=== PATIENT | male | born 1955 | race Caucasian/White ===

== ENCOUNTER 2022-03-13 12:12 | Inpatient (IN) | payer MEDICARE, MEDICAID ==
[2022-03-13 14:12] LABS: Mean Corpuscular HGB Conc 33 % (32-34); Mean Corpuscular Volume 103 fl (84-94); Red Blood Count 1.38 M/mm3 (3.65-5.03); Red Cell Distribution Width 19.4 % (13.2-15.2)
[2022-03-13 14:17] LABS: Hematocrit 14.2 % (35.5-45.6); Hemoglobin 4.6 gm/dl (11.8-15.2); Platelet Count 91 K/mm3 (140-440)
[2022-03-13 14:39] LABS: Albumin 1.8 g/dL (3.9-5); Calcium 7.6 mg/dL (8.4-10.2)
[2022-03-13] MEDS ORDERED: SODIUM CHLORIDE 0.9% 500 ML 500 ML IV ONE ×2 (14:43→22:30)
[2022-03-13 14:47] LABS: Eosinophils % (Manual) 0 % (0.0-4.3); Total Cells Counted 100
[2022-03-13 14:48] LABS: Anisocytosis 1+; Stomatocytes 1+
[2022-03-13 14:49] LABS: Hypochromasia 1+; Platelet Estimate Consistent w Auto
--- NOTE | 2022-03-13 17:18 | History and Physical Report ---
History of Present Illness Chief complaint: He got confused after dialysis History of present illness: 66 YO Male with HTN, DM, HCV, ESRD on HD(M,W,F) Presents to ED for evaluation. Patient is confused and lethargic at the time my evaluation and is unable to provide history. Patient history taken by EMS staff, ED staff, as well as dialysis center staff. Patient was in his routine state of health today and underwent his routine scheduled dialysis. Patient became confused during dialysis. Patient was able to complete dialysis remained confused. EMS was notified and upon arrival the patient was found to be in distress and subsequent transported to [facility] for further care and evaluation of the aforementioned sy mptoms. The patient was seen and evaluated in the emergency department. All lab and imaging studies reviewed. Patient found to have dialysis disequilibrium syndrome, symptomatic anemia, as well as end-stage renal disease. Patient admitted to medical floor due to increased risk of worsening symptoms and for medical stabilization. No further history is obtainable. No prior admission for review. No medication listed at time of admission for reconciliation. Advanced care planning conducted in ED. Patient is confused with diminished cognition at time of evaluation but has a positive gag reflex and is able to protect his airway without difficulty. Past History Past Medical History: diabetes, ESRD, hypertension Past Surgical History: Other (Dialysis access) Social history: single. denies: smoking, alcohol abuse, prescription drug abuse Family history: diabetes, hypertension Medications and Allergies Active Meds: Active Medications Sodium Chloride (Nacl 0.9% 1000 Ml) 1,000 mls @ 999 mls/hr IV BOLUS ONE Stop: 03/13/22 14:20 Sodium Chloride (Nacl 0.9% 500 Ml) 500 mls @ 0 mls/hr IV ONCE ONE Stop: 03/13/22 14:41 Sodium Chloride (Nacl 0.9% 500 Ml) 500 mls @ 0 mls/hr IV ONCE ONE Stop: 03/13/22 14:44 Review of Systems ROS unobtainable: due to mental status Exam - Constitutional Vitals: Temp Pulse Resp BP Pulse Ox 88 18 118/66 97 03/13/22 12:20 03/13/22 12:20 03/13/22 12:20 03/13/22 13:21 General appearance: Present: mild distress - EENT Eyes: Present: PERRL ENT: hearing intact, clear oral mucosa - Neck Neck: Present: supple, normal ROM - Respiratory Respiratory effort: normal Respiratory: bilateral: diminished - Cardiovascular Heart Sounds: Present: S1 & S2. Absent: rub, click - Extremities Extremities: pulses symmetrical, No edema Peripheral Pulses: within normal limits - Abdominal General gastrointestinal: Present: soft, non-tender, non-distended, normal bowel sounds Male genitourinary: Present: normal - Integumentary Integumentary: Present: clear, dry - Musculoskeletal Musculoskeletal: generalized weakness - Psychiatric Psychiatric: no appropriate mood/affect, no intact judgment & insight, no memory intact - Neurologic Neurologic: CNII-XII intact, no focal deficits, moves all extremities, no gait normal HEART Score - HEART Score Troponin: Troponin T 0.414 ng/mL (0.00-0.029) H* 03/13/22 13:50 Results - Labs CBC & Chem 7: 03/13/22 13:50 03/13/22 13:50 Labs: Abnormal lab results 03/13/22 03/13/22 03/13/22 Range/Units 13:50 13:50 16:22 RBC 1.38 L (3.65-5.03) M/mm3 Hgb 4.6 L* (11.8-15.2) gm/dl Hct 14.2 L* (35.5-45.6) % MCV 103 H (84-94) fl MCH 34 H (28-32) pg RDW 19.4 H (13.2-15.2) % Plt Count 91 L (140-440) K/mm3 Seg Neuts % (Manual) 90.0 H (40.0-70.0) % Lymphocytes % (Manual) 5.0 L (13.4-35.0) % Nucleated RBC % 4.0 H (0.0-0.9) % Lymphocytes # (Manual) 0.3 L (1.2-5.4) K/mm3 Potassium 3.3 L (3.6-5.0) mmol/L BUN 24 H (9-20) mg/dL Creatinine 2.0 H (0.8-1.3) mg/dL Calcium 7.6 L (8.4-10.2) mg/dL Total Bilirubin 1.40 H (0.1-1.2) mg/dL AST 200 H (5-40) units/L ALT 71 H (7-56) units/L Troponin T 0.414 H* (0.00-0.029) ng/mL Total Protein 5.4 L (6.3-8.2) g/dL Albumin 1.8 L (3.9-5) g/dL Crossmatch See Detail Assessment and Plan - Patient Problems (1) Dialysis disequilibrium syndrome Current Visit: Yes Status: Acute Plan to address problem: CT scan head, neuro check, seizure precaution, aspiration caution, fall precautions, supportive care. (2) Symptomatic anemia Current Visit: Yes Status: Acute Plan to address problem: Blood cell transfusion, repeat CBC in AM. (3) End stage renal disease Current Visit: Yes Status: Acute Plan to address problem: Nephrology team consulted in ED, dialysis as per renal team. (4) DVT prophylaxis Current Visit: Yes Status: Acute Plan to address problem: SCD to bilateral lower extremities while in bed (5) Advance care planning Current Visit: Yes Status: Acute Plan to address problem: Disease education conducted, care plan discussed, diagnoses discussed, prognosis discussed, +30 minutes. (6) Preventative health care Current Visit: Yes Status: Acute Plan to address problem: Patient to follow-up with primary care physician for all age and risk factor appropriate screening test. +30 minutes.
[2022-03-13] MEDS ORDERED: CALCIUM GLUCONATE 2,000 MG in SODIUM CHLORIDE 0.9% 100 ML IV ONE (17:24)
--- NOTE | 2022-03-13 17:25 | Emergency Department Report ---
ED Altered Mental Status HPI - General Chief Complaint: Altered Mental Status Stated Complaint: ALTERED MENTAL STATUS Time Seen by Provider: 03/13/22 13:05 Source: EMS Mode of arrival: Stretcher Limitations: Altered Mental Status - History of Present Illness Initial Comments: Patient is a 66-year-old male sent from dialysis for decreased mental status o ccurring earlier today. ED Review of Systems ROS: Stated complaint: ALTERED MENTAL STATUS Other details as noted in HPI Constitutional: denies: chills, fever Respiratory: denies: cough, shortness of breath, wheezing Cardiovascular: denies: chest pain, palpitations Gastrointestinal: denies: abdominal pain, nausea, diarrhea Musculoskeletal: denies: back pain, joint swelling, arthralgia Skin: denies: rash, lesions Neurological: denies: headache, weakness, paresthesias ED Past Medical Hx - Past Medical History Hx Hypertension: Yes Hx Diabetes: Yes Hx Liver Disease: Yes (Hep C) Hx Renal Disease: Yes (HD) - Social History Smoking Status: Unknown if ever smoked ED Physical Exam - General Limitations: Altered Mental Status General appearance: in no apparent distress, lethargic (Appears confused) - Head Head exam: Present: atraumatic, normocephalic - Respiratory Respiratory exam: Present: normal lung sounds bilaterally. Absent: respiratory distress - Cardiovascular Cardiovascular Exam: Present: regular rate, normal rhythm, normal heart sounds - GI/Abdominal GI/Abdominal exam: Present: soft. Absent: distended, tenderness - Rectal Rectal exam: Present: deferred (Patient refuses rectal exam) - Neurological Exam Neurological exam: Present: CN II-XII intact, other (Oriented to person only) - Skin Skin exam: Present: warm, dry, intact, normal color ED Course Vital Signs 03/13/22 03/13/22 12:20 13:21 Pulse Rate 88 Respiratory 18 Rate Blood Pressure 118/66 [Left] O2 Sat by Pulse 98 97 Oximetry - Lab Data Result diagrams: 03/13/22 13:50 03/13/22 13:50 Lab Results 03/13/22 03/13/22 03/13/22 Range/Units 13:50 13:50 13:50 WBC 5.4 (4.5-11.0) K/mm3 RBC 1.38 L (3.65-5.03) M/mm3 Hgb 4.6 L* (11.8-15.2) gm/dl Hct 14.2 L* (35.5-45.6) % MCV 103 H (84-94) fl MCH 34 H (28-32) pg MCHC 33 (32-34) % RDW 19.4 H (13.2-15.2) % Plt Count 91 L (140-440) K/mm3 Add Manual Diff Complete Total Counted 100 Seg Neuts % (Manual) 90.0 H (40.0-70.0) % Band Neutrophils % 0 % Lymphocytes % (Manual) 5.0 L (13.4-35.0) % Reactive Lymphs % (Man) 0 % Monocytes % (Manual) 4.0 (0.0-7.3) % Eosinophils % (Manual) 0 (0.0-4.3) % Basophils % (Manual) 1.0 (0.0-1.8) % Metamyelocytes % 0 % Myelocytes % 0 % Promyelocytes % 0 % Blast Cells % 0 % Nucleated RBC % 4.0 H (0.0-0.9) % Seg Neutrophils # Man 4.9 (1.8-7.7) K/mm3 Band Neutrophils # 0.0 K/mm3 Lymphocytes # (Manual) 0.3 L (1.2-5.4) K/mm3 Abs React Lymphs (Man) 0.0 K/mm3 Monocytes # (Manual) 0.2 (0.0-0.8) K/mm3 Eosinophils # (Manual) 0.0 (0.0-0.4) K/mm3 Basophils # (Manual) 0.1 (0.0-0.1) K/mm3 Metamyelocytes # 0.0 K/mm3 Myelocytes # 0.0 K/mm3 Promyelocytes # 0.0 K/mm3 Blast Cells # 0.0 K/mm3 WBC Morphology Not Reportable Hypersegmented Neuts Not Reportable Hyposegmented Neuts Not Reportable Hypogranular Neuts Not Reportable Smudge Cells Not Reportable Toxic Granulation Not Reportable Toxic Vacuolation Not Reportable Dohle Bodies Not Reportable Pelger-Huet Anomaly Not Reportable Samir Rods Not Reportable Platelet Estimate Consistent w auto Clumped Platelets Not Reportable Plt Clumps, EDTA Not Reportable Large Platelets Not Reportable Giant Platelets Not Reportable Platelet Satelliting Not Reportable Plt Morphology Comment Not Reportable RBC Morphology Not Reportable Dimorphic RBCs Not Reportable Polychromasia Not Reportable Hypochromasia 1+ Poikilocytosis Not Reportable Anisocytosis 1+ Microcytosis Not Reportable Macrocytosis Not Reportable Spherocytes Not Reportable Pappenheimer Bodies Not Reportable Sickle Cells Not Reportable Target Cells Not Reportable Tear Drop Cells Not Reportable Ovalocytes Not Reportable Stomatocytes 1+ Helmet Cells Not Reportable Mckeon-[place] Bodies Not Reportable [place] Rings Not Reportable Wei Cells Not Reportable Bite Cells Not Reportable Crenated Cell Not Reportable Elliptocytes Not Reportable Acanthocytes (Spur) Not Reportable Rouleaux Not Reportable Hemoglobin C Crystals Not Reportable Schistocytes Not Reportable Malaria parasites Not Reportable Nav Bodies Not Reportable Hem Pathologist Commnt No Sodium 139 (137-145) mmol/L Potassium 3.3 L (3.6-5.0) mmol/L Chloride 100.8 (98-107) mmol/L Carbon Dioxide 25 (22-30) mmol/L Anion Gap 17 mmol/L BUN 24 H (9-20) mg/dL Creatinine 2.0 H (0.8-1.3) mg/dL Estimated GFR 33 ml/min BUN/Creatinine Ratio 12 % Glucose 93 (75-100) mg/dL Lactic Acid 1.70 (0.7-2.0) mmol/L Calcium 7.6 L (8.4-10.2) mg/dL Total Bilirubin 1.40 H (0.1-1.2) mg/dL AST 200 H (5-40) units/L ALT 71 H (7-56) units/L Alkaline Phosphatase 99 (35-129) units/L Total Creatine Kinase 63 (55-170) units/L Troponin T 0.414 H* (0.00-0.029) ng/mL Total Protein 5.4 L (6.3-8.2) g/dL Albumin 1.8 L (3.9-5) g/dL Albumin/Globulin Ratio 0.5 % Blood Type Crossmatch 03/13/22 Range/Units 16:22 WBC (4.5-11.0) K/mm3 RBC (3.65-5.03) M/mm3 Hgb (11.8-15.2) gm/dl Hct (35.5-45.6) % MCV (84-94) fl MCH (28-32) pg MCHC (32-34) % RDW (13.2-15.2) % Plt Count (140-440) K/mm3 Add Manual Diff Total Counted Seg Neuts % (Manual) (40.0-70.0) % Band Neutrophils % % Lymphocytes % (Manual) (13.4-35.0) % Reactive Lymphs % (Man) % Monocytes % (Manual) (0.0-7.3) % Eosinophils % (Manual) (0.0-4.3) % Basophils % (Manual) (0.0-1.8) % Metamyelocytes % % Myelocytes % % Promyelocytes % % Blast Cells % % Nucleated RBC % (0.0-0.9) % Seg Neutrophils # Man (1.8-7.7) K/mm3 Band Neutrophils # K/mm3 Lymphocytes # (Manual) (1.2-5.4) K/mm3 Abs React Lymphs (Man) K/mm3 Monocytes # (Manual) (0.0-0.8) K/mm3 Eosinophils # (Manual) (0.0-0.4) K/mm3 Basophils # (Manual) (0.0-0.1) K/mm3 Metamyelocytes # K/mm3 Myelocytes # K/mm3 Promyelocytes # K/mm3 Blast Cells # K/mm3 WBC Morphology Hypersegmented Neuts Hyposegmented Neuts Hypogranular Neuts Smudge Cells Toxic Granulation Toxic Vacuolation Dohle Bodies Pelger-Huet Anomaly Samir Rods Platelet Estimate Clumped Platelets Plt Clumps, EDTA Large Platelets Giant Platelets Platelet Satelliting Plt Morphology Comment RBC Morphology Dimorphic RBCs Polychromasia Hypochromasia Poikilocytosis Anisocytosis Microcytosis Macrocytosis Spherocytes Pappenheimer Bodies Sickle Cells Target Cells Tear Drop Cells Ovalocytes Stomatocytes Helmet Cells Mckeon-[place] Bodies [place] Rings Wei Cells Bite Cells Crenated Cell Elliptocytes Acanthocytes (Spur) Rouleaux Hemoglobin C Crystals Schistocytes Malaria parasites Nav Bodies Hem Pathologist Commnt Sodium (137-145) mmol/L Potassium (3.6-5.0) mmol/L Chloride (98-107) mmol/L Carbon Dioxide (22-30) mmol/L Anion Gap mmol/L BUN (9-20) mg/dL Creatinine (0.8-1.3) mg/dL Estimated GFR ml/min BUN/Creatinine Ratio % Glucose (75-100) mg/dL Lactic Acid (0.7-2.0) mmol/L Calcium (8.4-10.2) mg/dL Total Bilirubin (0.1-1.2) mg/dL AST (5-40) units/L ALT (7-56) units/L Alkaline Phosphatase (35-129) units/L Total Creatine Kinase (55-170) units/L Troponin T (0.00-0.029) ng/mL Total Protein (6.3-8.2) g/dL Albumin (3.9-5) g/dL Albumin/Globulin Ratio % Blood Type O POSITIVE Crossmatch See Detail - Medical Decision Making Laboratory evaluation reveals hemoglobin of 4.6. 3 units ordered. Platelet count 91. Troponin 0.414. Patient denies chest pain or shortness of breath. Likely related to chronic kidney disease. Serum calcium 7.6. IV calcium gluconate ordered. Will admit to hospitalist. Critical care attestation.: If time is entered above; I have spent that time in minutes in the direct care of this critically ill patient, excluding procedure time. ED Disposition Clinical Impression: Symptomatic anemia, Thrombocytopenia, Hypocalcemia Disposition: 09 ADMITTED INPATIENT Is pt being admited?: Yes Condition: Stable
--- NOTE | 2022-03-13 18:10 | Cat Scan Report ---
CT HEAD WITHOUT CONTRAST INDICATION / CLINICAL INFORMATION: ams. TECHNIQUE: All CT scans at this location are performed using CT dose reduction for ALARA by means of automated exposure control. COMPARISON: None available. FINDINGS: HEMORRHAGE: None. EXTRA-AXIAL SPACES: Moderately prominent likely related to cortical atrophy. VENTRICULAR SYSTEM: Moderately enlarged likely related to central atrophy. CEREBRAL PARENCHYMA: Moderate white matter hypodensities likely representing microangiopathy. Slightl y more focal low-attenuation change within the left frontoparietal region white matter tracts favors more focal chronic microangiopathy less likely prior infarct. MIDLINE SHIFT / HERNIATION: None. CEREBELLUM / BRAINSTEM: No significant abnormality. ORBITS: Normal as visualized. SOFT TISSUES: No significant abnormality. SKULL: No significant abnormality. PARANASAL SINUSES / MASTOID AIR CELLS: Normal as visualized. ADDITIONAL FINDINGS: None. IMPRESSION: 1. No acute intracranial pathology demonstrated by CT. 2. Extensive global atrophic/microangiopathic change most pronounced involving the left frontoparieta l periventricular white matter tracts versus a prior infarct in this region. Signer Name: Argentina Soares MD Signed: 03/13/2022 6:06 PM Workstation Name: [id number]
[2022-03-13] MEDS ORDERED: oxyCODONE /ACETAMINOPHEN 5-325MG TAB PO PRN (18:34)
[2022-03-13] MEDS ORDERED: ACETAMINOPHEN 325 MG TAB PO PRN (18:34)
[2022-03-13] MEDS ORDERED: MORPHINE 2 MG/1 ML INJ IV PRN (18:34)
[2022-03-13] MEDS ORDERED: ALBUTEROL 2.5 MG/3 ML NEBU IH PRN (18:34)
[2022-03-13] MEDS ORDERED: ONDANSETRON 4 MG/2 ML INJ IV PRN (18:34)
[2022-03-13] MEDS ORDERED: SODIUM CHLORIDE 0.9% 1000 ML 1,000 ML IV ONE (21:00)
--- NOTE | 2022-03-14 09:48 | Consultation ---
History of Present Illness - Reason for Consult Consult date: 03/14/22 end stage renal disease - History of Present Illness The patient is a 66 YO male with history notable for HTN, DM, HCV and ESRD on HD(MWF) who presented to [facility] ED 03/13/22 for evaluation of AMS. Patient is confused and lethargic at the time my evaluation and is unable to provide history. Per chart patient became confused during dialysis. Patient was able to complete dialysis but remained confused. In the ED labs notable for Hb 4.6, platelet 91. Patient was admitted with symptomatic anemia. CT head negative for acute process. Nephrology consulted for further evaluation and treatment of ESRD. Past History Past Medical History: diabetes, ESRD, hypertension Past Surgical History: Other (Dialysis access) Social history: single. denies: smoking, alcohol abuse, prescription drug abuse Family history: diabetes, hypertension Medications and Allergies Allergies Allergy/AdvReac Type Severity Reaction Status Date / Time No Known Allergies Allergy Unverified 03/14/22 08:19 Active Meds: Active Medications Acetaminophen (Acetaminophen 325 Mg Tab) 650 mg PO Q4H PRN PRN Reason: Pain MILD(1-3)/Fever >100.5/CASTILLO Albuterol (Albuterol 2.5 Mg/3 Ml Nebu) 2.5 mg IH Q4HRT PRN PRN Reason: Shortness Of Breath Morphine Sulfate (Morphine 2 Mg/1 Ml Inj) 2 mg IV Q14H PRN PRN Reason: Pain , Severe (7-10) Ondansetron HCl (Ondansetron 4 Mg/2 Ml Inj) 4 mg IV Q8H PRN PRN Reason: Nausea And Vomiting Oxycodone/Acetaminophen (Oxycodone /Acetaminophen 5-325mg Tab) 1 tab PO Q6H PRN PRN Reason: Pain, Moderate (4-6) Sodium Chloride (Sodium Chloride 0.9% 10 Ml Flush Syringe) 10 ml IV BID STACIE Last Admin: 03/13/22 22:03 Dose: 10 ml Sodium Chloride (Sodium Chloride 0.9% 10 Ml Flush Syringe) 10 ml IV PRN PRN PRN Reason: LINE FLUSH Review of Systems ROS unobtainable: due to mental status Exam - Vital Signs Vital signs: Vital Signs Pulse Resp BP Pulse Ox 88 18 118/66 98 03/13/22 12:20 03/13/22 12:20 03/13/22 12:20 03/13/22 12:20 Results - Lab Results 03/13/22 13:50 03/13/22 13:50 Most recent lab results Calcium 7.6 mg/dL (8.4-10.2) L 03/13/22 13:50 Magnesium 1.90 mg/dL (1.7-2.3) 03/13/22 18:10 Assessment and Plan 1. ESRD: Patient is on maintenance hemodialysis, MWF schedule. Hemodialysis: 2. FEN: Hypokalemia, replete K as needed. Monitor lytes and volume status. 3. Severe Anemia: PRBC. Epogen. Trend. Labs ordered for today, not done. 4. Acute metabolic encephalopathy: ?baseline MS. Monitor. 5. Elevated ALT & AST: Monitor. 6. Hypertension: Adjust meds as needed. Volume control. Monitor BP. 7. H/o DM. Subjective: Patient was seen and examined at the bedside. Examination: General appearance: well-developed, appears stated age, emaciated, not in distress HEENT: no icterus Neck: trachea midline Respiratory: ctab Heart: S1S2, regular, ESM+ Abdomen: soft, bowel sounds heard, NT, no palpable mass Integumentary: no obvious rash noted Neurologic: slowed mentation, oriented to self, not following any command Ext: no edema Hemodialysis access: R IJ tunnel catheter
--- NOTE | 2022-03-14 11:43 | Progress Note ---
Assessment and Plan The patient is a 66 YO male with history notable for HTN, DM, HCV and ESRD on HD(MWF) who presented to [facility] ED 03/13/22 for evaluation of AMS. In the ED labs notable for Hb 4.6, platelet 91. Patient was admitted with symptomatic anemia. CT head negative for acute process. Nephrology consulted for further evaluation and treatment of ESRD. Patient had hemodialysis and transfuse 2 unit of packed RBC 03/14: Status post hemodialysis and 2 units of packed RBC transfusion. GI to follow H&H, need GI evaluation to rule out GI bleeding. Follow BMP. Continue supportive care. Assessment and plan. --Acute metabolic encephalopathy CT scan head, neuro check, seizure precaution, aspiration caution, fall precauti ons, supportive care. -- Symptomatic anemia Likely due to chronic renal disease, need to rule out GI cause Status post blood cell transfusion, repeat CBC in AM. -- End stage renal disease Nephrology team consulted in ED, dialysis as per renal team. --Sinus tachycardia, continue to monitor -- Moderate protein calorie malnutrition, nutrition consult -- DVT prophylaxis: SCD to bilateral lower extremities while in bed Subjective Date of service: 03/14/22 Interval history: Patient seen and examined. Medical records and medication list reviewed. No acute event overnight noted by the RN. Patient denies any chest pain or difficulty breathing. Patient does not speak much, patient is tolerating diet per RN. Discussed plan of care at bedside with patient's RN. Objective - Exam Narrative Exam: GENERAL: Malnourished -[place] male lying on bed appeared to be in no discomfort. HEENT: Normocephalic. Atraumatic. No conjunctival congestion or icterus. Patient has moist mucous membranes. NECK: Supple. Trachea midline. CHEST/LUNGS: Clear to auscultated bilaterally, breathing nonlabored. No wheezes crackles or rhonchi. HEART/CARDIOVASCULAR: Regular in rate and rhythm. S1 and S2 positive. ABDOMEN: Abdomen is soft, nontender. Patient has normal bowel sounds. SKIN: There is no rash. Warm and dry. NEURO: No focal motor deficit. Follows command. MUSCULOSKELETAL: No joint effusion or tenderness. EXTRIMITY: No edema, no cyanosis or clubbing. PSYCH: Unable to assess, hardly speaking. - Constitutional Vitals: Vital Signs - 12hr 03/14/22 03/14/22 03/14/22 00:50 01:05 01:35 Temperature 97.4 F L 97.4 F L 97.2 F L Pulse Rate 90 90 89 Respiratory 17 16 17 Rate Blood Pressure 140/61 130/60 136/64 O2 Sat by Pulse 100 100 99 Oximetry 03/14/22 03/14/22 03/14/22 02:05 02:35 03:05 Temperature 97.3 F L 96.9 F L 96.8 F L Pulse Rate 90 90 90 Respiratory 16 17 18 Rate Blood Pressure 140/94 145/80 145/91 O2 Sat by Pulse 98 98 Oximetry 03/14/22 03/14/22 03:35 06:00 Temperature 96.5 F L 97.7 F Pulse Rate 90 97 H Respiratory 18 18 Rate Blood Pressure 148/69 109/51 O2 Sat by Pulse 94 Oximetry - Labs CBC & Chem 7: 03/14/22 21:13 03/14/22 21:13 Labs: Abnormal lab results 03/13/22 03/13/22 03/13/22 Range/Units 13:50 13:50 16:22 RBC 1.38 L (3.65-5.03) M/mm3 Hgb 4.6 L* (11.8-15.2) gm/dl Hct 14.2 L* (35.5-45.6) % MCV 103 H (84-94) fl MCH 34 H (28-32) pg RDW 19.4 H (13.2-15.2) % Plt Count 91 L (140-440) K/mm3 Seg Neuts % (Manual) 90.0 H (40.0-70.0) % Lymphocytes % (Manual) 5.0 L (13.4-35.0) % Nucleated RBC % 4.0 H (0.0-0.9) % Lymphocytes # (Manual) 0.3 L (1.2-5.4) K/mm3 Potassium 3.3 L (3.6-5.0) mmol/L BUN 24 H (9-20) mg/dL Creatinine 2.0 H (0.8-1.3) mg/dL Calcium 7.6 L (8.4-10.2) mg/dL Total Bilirubin 1.40 H (0.1-1.2) mg/dL AST 200 H (5-40) units/L ALT 71 H (7-56) units/L Troponin T 0.414 H* (0.00-0.029) ng/mL Total Protein 5.4 L (6.3-8.2) g/dL Albumin 1.8 L (3.9-5) g/dL Crossmatch See Detail HEART Score - HEART Score Troponin: Troponin T 0.414 ng/mL (0.00-0.029) H* 03/13/22 13:50
[2022-03-14] MEDS ORDERED: EPOETIN ALFA-EPBX 20,000 UNIT/1 ML VIAL SUB-Q ONE (12:00)
[2022-03-14 21:47] LABS: Basophils % (Auto) 0.9 % (0.0-1.8); Eosinophils # (Auto) 0.1 K/mm3 (0.0-0.4); Eosinophils % (Auto) 1.3 % (0.0-4.3); Hematocrit 24.1 % (35.5-45.6); Lymphocytes # (Auto) 1.1 K/mm3 (1.2-5.4); Lymphocytes % (Auto) 22.2 % (13.4-35.0); Mean Corpuscular HGB Conc 33 % (32-34); Mean Corpuscular Volume 94 fl (84-94); Monocytes # (Auto) 0.5 K/mm3 (0.0-0.8); Monocytes % (Auto) 9.9 % (0.0-7.3); Red Blood Count 2.55 M/mm3 (3.65-5.03)
[2022-03-14 21:51] LABS: Red Cell Distribution Width 21.9 % (13.2-15.2)
[2022-03-14 21:52] LABS: Platelet Count 72 K/mm3 (140-440)
[2022-03-14 21:53] LABS: Calcium 7.9 mg/dL (8.4-10.2)
[2022-03-15] MEDS: INSULIN LISPRO 100 UNIT/ML SUB-Q SCH ×4 (09:20→23:15)
[2022-03-15] MEDS ORDERED: FOLIC ACID PO SCH (10:00)
[2022-03-15] MEDS: TAMSULOSIN 0.4 MG CAP PO SCH (12:11)
[2022-03-15] MEDS: PANTOPRAZOLE 40 MG TAB PO SCH (12:11)
--- NOTE | 2022-03-15 12:29 | Progress Note ---
Assessment and Plan The patient is a 66 YO male with history notable for HTN, DM, HCV and ESRD on HD(MWF) who presented to [facility] ED 03/13/22 for evaluation of AMS. In the ED labs notable for Hb 4.6, platelet 91. Patient was admitted with symptomatic anemia. CT head negative for acute process. Nephrology consulted for further evaluation and treatment of ESRD. Patient had hemodialysis and transfuse 2 unit of packed RBC 03/14: Status post hemodialysis and 2 units of packed RBC transfusion. GI to follow H&H, need GI evaluation to rule out GI bleeding. Follow BMP. Continue supportive care. 03/15: Consulted GI, monitor H&H, placed on PPI Assessment and plan. --Acute metabolic encephalopathy CT scan head, neuro check, seizure precaution, aspiration caution, fall precautions, supportive care. -- Symptomatic anemia Likely due to chronic renal disease, need to rule out GI cause Status post blood cell transfusion, repeat CBC in AM. -- End stage renal disease Nephrology team consulted in ED, dialysis as per renal team. --Sinus tachycardia, continue to monitor -- Moderate protein calorie malnutrition, nutrition consult -- DVT prophylaxis: SCD to bilateral lower extremities while in bed Subjective Date of service: 03/15/22 Interval history: Patient seen and examined. Medical records and medication list reviewed. No acute event overnight noted by the RN. Patient denies any chest pain or difficulty breathing. Patient does not speak much, patient is tolerating diet per RN. Discussed plan of care at bedside with patient's RN. Objective - Exam Narrative Exam: GENERAL: Malnourished -Eritrean male lying on bed appeared to be in no discomfort. HEENT: Normocephalic. Atraumatic. No conjunctival congestion or icterus. Patient has moist mucous membranes. NECK: Supple. Trachea midline. CHEST/LUNGS: Clear to auscultated bilaterally, breathing nonlabored. No wheezes crackles or rhonchi. HEART/CARDIOVASCULAR: Regular in rate and rhythm. S1 and S2 positive. ABDOMEN: Abdomen is soft, nontender. Patient has normal bowel sounds. SKIN: There is no rash. Warm and dry. NEURO: No focal motor deficit. Follows command. MUSCULOSKELETAL: No joint effusion or tenderness. EXTRIMITY: No edema, no cyanosis or clubbing. PSYCH: Unable to assess, hardly speaking. - Constitutional Vitals: Vital Signs - 12hr 03/15/22 05:48 Temperature 97.6 F Pulse Rate 110 H Respiratory 20 Rate Blood Pressure 134/69 O2 Sat by Pulse 95 Oximetry - Labs CBC & Chem 7: 03/16/22 07:14 03/16/22 04:00 Labs: Abnormal lab results 03/14/22 03/14/22 03/14/22 Range/Units 12:08 16:46 21:13 RBC 2.55 L (3.65-5.03) M/mm3 Hgb 8.0 L D (11.8-15.2) gm/dl Hct 24.1 L D (35.5-45.6) % RDW 21.9 H (13.2-15.2) % Plt Count 72 L (140-440) K/mm3 [place] % (Auto) 9.9 H (0.0-7.3) % Lymph # (Auto) 1.1 L (1.2-5.4) K/mm3 Potassium (3.6-5.0) mmol/L BUN (9-20) mg/dL Creatinine (0.8-1.3) mg/dL Glucose (75-100) mg/dL POC Glucose 127 H 133 H (70-105) mg/dL Calcium (8.4-10.2) mg/dL 03/14/22 03/14/22 Range/Units 21:13 21:39 RBC (3.65-5.03) M/mm3 Hgb (11.8-15.2) gm/dl Hct (35.5-45.6) % RDW (13.2-15.2) % Plt Count (140-440) K/mm3 [place] % (Auto) (0.0-7.3) % Lymph # (Auto) (1.2-5.4) K/mm3 Potassium 3.5 L (3.6-5.0) mmol/L BUN 40 H (9-20) mg/dL Creatinine 3.1 H D (0.8-1.3) mg/dL Glucose 112 H (75-100) mg/dL POC Glucose 116 H (70-105) mg/dL Calcium 7.9 L (8.4-10.2) mg/dL HEART Score - HEART Score Troponin: Troponin T 0.414 ng/mL (0.00-0.029) H* 03/13/22 13:50
--- NOTE | 2022-03-15 13:50 | Progress Note ---
Assessment and Plan 1. ESRD: Patient is on maintenance hemodialysis, MWF schedule. Hemodialysis: 2. FEN: Hypokalemia, replete K as needed. Monitor lytes and volume status. 3. Severe Anemia: PRBC. Epogen. Trend. 4. Acute metabolic encephalopathy: ?baseline MS. Monitor. 5. Elevated ALT & AST: Monitor. 6. Hypertension: Adjust meds as needed. Volume control. Monitor BP. 7. H/o DM. Subjective: Patient was seen and examined at the bedside. Examination: General appearance: well-developed, appears stated age, emaciated, not in distress HEENT: no icterus Neck: trachea midline Respiratory: ctab Heart: S1S2, regular, ESM+ Abdomen: soft, bowel sounds heard, NT, no palpable mass Integumentary: no obvious rash noted Neurologic: slowed mentation, confused, not following any command, on restrains Ext: no edema Hemodialysis access: R IJ tunnel catheter Subjective Date of service: 03/15/22 Objective - Vital Signs Vital signs: Vital Signs - 12hr 03/15/22 05:48 Temperature 97.6 F Pulse Rate 110 H Respiratory 20 Rate Blood Pressure 134/69 O2 Sat by Pulse 95 Oximetry - Lab 03/14/22 21:13 03/14/22 21:13 Most recent lab results Calcium 7.9 mg/dL (8.4-10.2) L 03/14/22 21:13 Magnesium 1.90 mg/dL (1.7-2.3) 03/13/22 18:10 Medications & Allergies - Medications Allergies/Adverse Reactions: Allergies No Known Allergies Allergy (Unverified 03/14/22 08:19) Home Medications: Home Medications Medication Instructions Recorded Confirmed Last Taken Type Folic Acid [Folvite] 1 mg PO DAILY 03/14/22 03/14/22 Unknown History Furosemide [Lasix] 40 mg PO 03/14/22 Unknown History Sevelamer Carbonate [Renvela] 800 PO DAILY 03/14/22 Unknown History Tamsulosin [Flomax] 0.4 mg PO QDAY 03/14/22 03/14/22 Unknown History amLODIPine [Norvasc] 10 mg PO DAILY 03/14/22 03/14/22 Unknown History Ammonium Lactate [Skin Treatment] 400 1000units 03/15/22 Unknown History Aspirin EC [Halfprin EC] 81 mg PO DAILY 03/15/22 03/15/22 Unknown History Atorvastatin [Lipitor Tab] 80 mg PO DAILY 03/15/22 03/15/22 Unknown History DULoxetine [Cymbalta] 30 cap PO DAILY 03/15/22 03/15/22 Unknown History Esomeprazole Magnesium [NexIUM] 40 mg PO 12XD 03/15/22 03/15/22 Unknown History Folic Acid 1 tab PO DAILY 03/15/22 03/15/22 Unknown History Gabapentin 200 PO DAILY 03/15/22 Unknown History Metoprolol [Lopressor] 25 mg PO DAILY 03/15/22 03/15/22 Unknown History Active Medications: Generic Name Dose Route Start Last Admin Trade Name Freq PRN Reason Stop Dose Admin Acetaminophen 650 mg 03/13/22 18:34 Acetaminophen 325 Mg Tab PO Q4H PRN Pain MILD(1-3)/Fever >100.5/CASTILLO Albuterol 2.5 mg 03/13/22 18:34 Albuterol 2.5 Mg/3 Ml Nebu IH Q4HRT PRN Shortness Of Breath Folic Acid 1 mg 03/16/22 10:00 Folic Acid 1 Mg Tab PO DAILY [facility] Insulin Human Lispro 0 unit 03/15/22 07:30 03/15/22 13:44 Insulin Lispro 100 Unit/Ml SUB-Q Not Given ACHS [facility] Protocol Morphine Sulfate 2 mg 03/13/22 18:34 Morphine 2 Mg/1 Ml Inj IV Q14H PRN Pain , Severe (7-10) Ondansetron HCl 4 mg 03/13/22 18:34 Ondansetron 4 Mg/2 Ml Inj IV Q8H PRN Nausea And Vomiting Oxycodone/Acetaminophen 1 tab 03/13/22 18:34 Oxycodone /Acetaminophen 5-325mg Tab PO Q6H PRN Pain, Moderate (4-6) Pantoprazole Sodium 40 mg 03/15/22 11:00 03/15/22 12:11 Pantoprazole 40 Mg Tab PO 40 mg QDAC STACIE Administration Sodium Chloride 10 ml 03/13/22 22:00 03/15/22 12:12 Sodium Chloride 0.9% 10 Ml Flush Syringe IV 10 ml BID STACIE Administration Sodium Chloride 10 ml 03/13/22 18:34 Sodium Chloride 0.9% 10 Ml Flush Syringe IV PRN PRN LINE FLUSH Tamsulosin HCl 0.4 mg 03/15/22 11:00 03/15/22 12:11 Tamsulosin 0.4 Mg Cap PO 0.4 mg QDAY STACIE Administration
[2022-03-15] MEDS ORDERED: SODIUM CHLORIDE 0.9% 100 ML IV PRN (20:00)
[2022-03-15] MEDS ORDERED: EPOETIN ALFA-EPBX 20,000 UNIT/1 ML VIAL IV PRN (20:00)
[2022-03-16 00:17] LABS: Hepatitis B Surface Antigen Non-Reactive (Negative); Hepatitis C Virus Antibody Reactive (NonReactive)
[2022-03-16] MEDS: INSULIN LISPRO 100 UNIT/ML SUB-Q SCH ×4 (09:09→23:36)
[2022-03-16 09:13] LABS: Calcium 7.5 mg/dL (8.4-10.2)
[2022-03-16] MEDS: PANTOPRAZOLE 40 MG TAB PO SCH (09:16)
[2022-03-16] MEDS: FOLIC ACID 1 MG TAB PO SCH (09:16)
[2022-03-16] MEDS: TAMSULOSIN 0.4 MG CAP PO SCH (09:16)
[2022-03-16 09:49] LABS: Hematocrit 24.5 % (35.5-45.6)
--- NOTE | 2022-03-16 10:15 | Gastroenterology Consultation ---
History of Present Illness - Reason for Consult Consult date: 03/16/22 - History of Present Illness Mr Bustos is a 66 y/o M w/ PMHx of HTN, DM, HCV, ESRD on HD(M,W,F) who presented to the ED for evaluation. GI has been consulted for ?GI bleed. Pt currently has AMS and is unable to tell me what is going on. Per nurse, pt is not having any hematochezia, melena, coffee ground emesis or hematemesis. Hemoglobin 8.0 this AM which is unchanged from x2 days ago. Past History Past Medical History: diabetes, ESRD, hypertension Past Surgical History: Other (Dialysis access) Social history: single. denies: smoking, alcohol abuse, prescription drug abuse Family history: diabetes, hypertension Medications and Allergies Allergies Allergy/AdvReac Type Severity Reaction Status Date / Time No Known Allergies Allergy Unverified 03/14/22 08:19 Home Medications Medication Instructions Recorded Confirmed Last Taken Type Folic Acid [Folvite] 1 mg PO DAILY 03/14/22 03/14/22 Unknown History Furosemide [Lasix] 40 mg PO 03/14/22 Unknown History Sevelamer Carbonate [Renvela] 800 PO DAILY 03/14/22 Unknown History Tamsulosin [Flomax] 0.4 mg PO QDAY 03/14/22 03/14/22 Unknown History amLODIPine [Norvasc] 10 mg PO DAILY 03/14/22 03/14/22 Unknown History Ammonium Lactate [Skin Treatment] 400 1000units 03/15/22 Unknown History Aspirin EC [Halfprin EC] 81 mg PO DAILY 03/15/22 03/15/22 Unknown History Atorvastatin [Lipitor Tab] 80 mg PO DAILY 03/15/22 03/15/22 Unknown History DULoxetine [Cymbalta] 30 cap PO DAILY 03/15/22 03/15/22 Unknown History Esomeprazole Magnesium [NexIUM] 40 mg PO 12XD 03/15/22 03/15/22 Unknown History Folic Acid 1 tab PO DAILY 03/15/22 03/15/22 Unknown History Gabapentin 200 PO DAILY 03/15/22 Unknown History Metoprolol [Lopressor] 25 mg PO DAILY 03/15/22 03/15/22 Unknown History Active Meds: Active Medications Acetaminophen (Acetaminophen 325 Mg Tab) 650 mg PO Q4H PRN PRN Reason: Pain MILD(1-3)/Fever >100.5/CASTILLO Albuterol (Albuterol 2.5 Mg/3 Ml Nebu) 2.5 mg IH Q4HRT PRN PRN Reason: Shortness Of Breath Epoetin Tucker-epbx (Epoetin Tucker-Epbx 20,000 Unit/1 Ml Vial) 20,000 unit IV KASHMIR PRN PRN Reason: hemodialysis Folic Acid (Folic Acid 1 Mg Tab) 1 mg PO DAILY [facility] Last Admin: 03/16/22 09:16 Dose: 1 mg Sodium Chloride (Nacl 0.9%) 100 mls @ 999 mls/hr IV KASHMIR PRN PRN Reason: Hypotension Insulin Human Lispro (Insulin Lispro 100 Unit/Ml) 0 unit SUB-Q ACHS [facility]; Protocol Last Admin: 03/16/22 09:09 Dose: Not Given Morphine Sulfate (Morphine 2 Mg/1 Ml Inj) 2 mg IV Q14H PRN PRN Reason: Pain , Severe (7-10) Ondansetron HCl (Ondansetron 4 Mg/2 Ml Inj) 4 mg IV Q8H PRN PRN Reason: Nausea And Vomiting Oxycodone/Acetaminophen (Oxycodone /Acetaminophen 5-325mg Tab) 1 tab PO Q6H PRN PRN Reason: Pain, Moderate (4-6) Pantoprazole Sodium (Pantoprazole 40 Mg Tab) 40 mg PO QDAC [facility] Last Admin: 03/16/22 09:16 Dose: 40 mg Sodium Chloride (Sodium Chloride 0.9% 10 Ml Flush Syringe) 10 ml IV BID [facility] Last Admin: 03/16/22 09:16 Dose: 10 ml Sodium Chloride (Sodium Chloride 0.9% 10 Ml Flush Syringe) 10 ml IV PRN PRN PRN Reason: LINE FLUSH Tamsulosin HCl (Tamsulosin 0.4 Mg Cap) 0.4 mg PO QDAY [facility] Last Admin: 03/16/22 09:16 Dose: 0.4 mg Review of Systems - Review of Systems ROS unobtainable: due to mental status Exam - Constitutional Vital Signs: Temp Pulse Resp BP Pulse Ox 98.3 F 104 H 18 151/63 95 03/16/22 05:25 03/16/22 05:25 03/16/22 05:25 03/16/22 05:25 03/16/22 09:09 General appearance: no acute distress - Gastrointestinal General gastrointestinal: Present: non-tender, non-distended - Labs CBC & Chem 7: 03/16/22 07:14 03/16/22 04:00 Lab Results: Laboratory Results - last 24 hr 03/15/22 03/16/22 03/16/22 23:06 04:00 07:14 Hgb 8.0 L Hct 24.5 L Sodium 139 Potassium 4.2 Chloride 102.4 Carbon Dioxide 20 L D Anion Gap 21 BUN 19 Creatinine 1.3 D Estimated GFR 55 BUN/Creatinine Ratio 15 Glucose 318 H POC Glucose Calcium 7.5 L Hepatitis A IgM Ab Non-reactive Hep Bs Antigen Non-reactive Hep B Core IgM Ab Non-reactive Hepatitis C Antibody Reactive A 03/16/22 07:39 Hgb Hct Sodium Potassium Chloride Carbon Dioxide Anion Gap BUN Creatinine Estimated GFR BUN/Creatinine Ratio Glucose POC Glucose 88 Calcium Hepatitis A IgM Ab Hep Bs Antigen Hep B Core IgM Ab Hepatitis C Antibody Assessment and Plan 1. Anemia - This does not appear to be 2/2 to an acute GI bleed - no overt GI bleeding has been reported - Hemoglobin stable at 8.0 which is unchanged from x2 days ago - continue to monitor hemoglobin and transfuse as needed to maintain hemoglobin >7 - no plans for endoscopic workup at this time given lack of overt GI bleeding, stable hemoglobin, and comorbids
[2022-03-16] MEDS ORDERED: EPOETIN ALFA-EPBX 10,000 UNIT/1 ML VIAL IV PRN (13:00)
--- NOTE | 2022-03-16 13:16 | Progress Note ---
Assessment and Plan 1. ESRD: Patient is on maintenance hemodialysis, MWF schedule. Hemodialysis: 03/16. 2. FEN: Hypokalemia, replete K as needed. Monitor lytes and volume status. 3. Severe Anemia: PRBC. Epogen. Trend. 4. Acute metabolic encephalopathy: ?baseline MS. Monitor. 5. Elevated ALT & AST: Monitor. 6. Hypertension: Adjust meds as needed. Volume control. Monitor BP. 7. H/o DM. Subjective: Patient was seen and examined at the bedside. Examination: General appearance: well-developed, appears stated age, emaciated, not in distress HEENT: no icterus Neck: trachea midline Respiratory: ctab Heart: S1S2, regular, ESM+ Abdomen: soft, bowel sounds heard, NT, no palpable mass Integumentary: no obvious rash noted Neurologic: slowed mentation, confused, on restrains Ext: no edema Hemodialysis access: R IJ tunnel catheter Subjective Date of service: 03/16/22 Objective - Vital Signs Vital signs: Vital Signs - 12hr 03/16/22 03/16/22 03/16/22 05:25 09:09 10:25 Temperature 98.3 F 97.8 F Pulse Rate 104 H 108 H Respiratory 18 18 Rate Blood Pressure 151/63 159/76 O2 Sat by Pulse 100 95 Oximetry O2 Sat by Pulse 100 Oximetry [ Anterior Bilateral] 03/16/22 03/16/22 03/16/22 11:00 11:15 11:30 Temperature Pulse Rate 104 H 104 H 107 H Respiratory Rate Blood Pressure 153/11 147/74 154/69 O2 Sat by Pulse Oximetry O2 Sat by Pulse Oximetry [ Anterior Bilateral] 03/16/22 03/16/22 03/16/22 11:45 12:00 12:15 Temperature Pulse Rate 108 H 106 H 109 H Respiratory Rate Blood Pressure 152/66 145/65 149/71 O2 Sat by Pulse Oximetry O2 Sat by Pulse Oximetry [ Anterior Bilateral] 03/16/22 03/16/22 12:30 12:45 Temperature Pulse Rate 110 H 106 H Respiratory Rate Blood Pressure 159/69 148/69 O2 Sat by Pulse Oximetry O2 Sat by Pulse Oximetry [ Anterior Bilateral] - Lab 03/16/22 07:14 03/16/22 04:00 Most recent lab results Calcium 7.5 mg/dL (8.4-10.2) L 03/16/22 04:00 Magnesium 1.90 mg/dL (1.7-2.3) 03/13/22 18:10 Medications & Allergies - Medications Allergies/Adverse Reactions: Allergies No Known Allergies Allergy (Unverified 03/14/22 08:19) Home Medications: Home Medications Medication Instructions Recorded Confirmed Last Taken Type Folic Acid [Folvite] 1 mg PO DAILY 03/14/22 03/14/22 Unknown History Furosemide [Lasix] 40 mg PO 03/14/22 Unknown History Sevelamer Carbonate [Renvela] 800 PO DAILY 03/14/22 Unknown History Tamsulosin [Flomax] 0.4 mg PO QDAY 03/14/22 03/14/22 Unknown History amLODIPine [Norvasc] 10 mg PO DAILY 03/14/22 03/14/22 Unknown History Ammonium Lactate [Skin Treatment] 400 1000units 03/15/22 Unknown History Aspirin EC [Halfprin EC] 81 mg PO DAILY 03/15/22 03/15/22 Unknown History Atorvastatin [Lipitor Tab] 80 mg PO DAILY 03/15/22 03/15/22 Unknown History DULoxetine [Cymbalta] 30 cap PO DAILY 03/15/22 03/15/22 Unknown History Esomeprazole Magnesium [NexIUM] 40 mg PO 12XD 03/15/22 03/15/22 Unknown History Folic Acid 1 tab PO DAILY 03/15/22 03/15/22 Unknown History Gabapentin 200 PO DAILY 03/15/22 Unknown History Metoprolol [Lopressor] 25 mg PO DAILY 03/15/22 03/15/22 Unknown History Active Medications: Generic Name Dose Route Start Last Admin Trade Name Freq PRN Reason Stop Dose Admin Acetaminophen 650 mg 03/13/22 18:34 Acetaminophen 325 Mg Tab PO Q4H PRN Pain MILD(1-3)/Fever >100.5/CASTILLO Albuterol 2.5 mg 03/13/22 18:34 Albuterol 2.5 Mg/3 Ml Nebu IH Q4HRT PRN Shortness Of Breath Epoetin Tucker-epbx 20,000 unit 03/16/22 13:00 Epoetin Tucker-Epbx 10,000 Unit/1 Ml Vial IV KASHMIR PRN hemodialysis Folic Acid 1 mg 03/16/22 10:00 03/16/22 09:16 Folic Acid 1 Mg Tab PO 1 mg DAILY STACIE Administration Sodium Chloride 100 mls @ 999 mls/hr 03/15/22 20:00 Nacl 0.9% IV KASHMIR PRN Hypotension Insulin Human Lispro 0 unit 03/15/22 07:30 03/16/22 09:09 Insulin Lispro 100 Unit/Ml SUB-Q Not Given ACHS STACIE Protocol Morphine Sulfate 2 mg 03/13/22 18:34 Morphine 2 Mg/1 Ml Inj IV Q14H PRN Pain , Severe (7-10) Ondansetron HCl 4 mg 03/13/22 18:34 Ondansetron 4 Mg/2 Ml Inj IV Q8H PRN Nausea And Vomiting Oxycodone/Acetaminophen 1 tab 03/13/22 18:34 Oxycodone /Acetaminophen 5-325mg Tab PO Q6H PRN Pain, Moderate (4-6) Pantoprazole Sodium 40 mg 03/15/22 11:00 03/16/22 09:16 Pantoprazole 40 Mg Tab PO 40 mg QDAC STACIE Administration Sodium Chloride 10 ml 03/13/22 22:00 03/16/22 09:16 Sodium Chloride 0.9% 10 Ml Flush Syringe IV 10 ml BID STACIE Administration Sodium Chloride 10 ml 03/13/22 18:34 Sodium Chloride 0.9% 10 Ml Flush Syringe IV PRN PRN LINE FLUSH Tamsulosin HCl 0.4 mg 03/15/22 11:00 03/16/22 09:16 Tamsulosin 0.4 Mg Cap PO 0.4 mg QDAY STACIE Administration
--- NOTE | 2022-03-16 14:48 | Progress Note ---
Assessment and Plan The patient is a 66 YO male with history notable for HTN, DM, HCV and ESRD on HD(MWF) who presented to [facility] ED 03/13/22 for evaluation of AMS. In the ED labs notable for Hb 4.6, platelet 91. Patient was admitted with symptomatic anemia. CT head negative for acute process. Nephrology consulted for further evaluation and treatment of ESRD. Patient had hemodialysis and transfuse 2 unit of packed RBC 03/14: Status post hemodialysis and 2 units of packed RBC transfusion. GI to follow H&H, need GI evaluation to rule out GI bleeding. Follow BMP. Continue supportive care. 03/15: Consulted GI, monitor H&H, placed on PPI 03/17: cont PPI, no plan for egd per GI, ordered PT eval. may need JOHN Assessment and plan. --Acute metabolic encephalopathy CT scan head, neuro check, seizure precaution, aspiration caution, fall precautions, supportive care. -- Symptomatic anemia Likely due to chronic renal disease, no plan for egd per GI Status post blood cell transfusion, repeat CBC in AM. -- End stage renal disease Nephrology team consulted in ED, dialysis as per renal team. --Sinus tachycardia, continue to monitor -- Moderate protein calorie malnutrition, nutrition consult -- DVT prophylaxis: SCD to bilateral lower extremities while in bed Subjective Date of service: 03/16/22 Interval history: Patient seen and examined. Medical records and medication list reviewed. No acute event overnight noted by the RN. Patient denies any chest pain or difficulty breathing. Patient does not speak much, patient is tolerating diet per RN. Getting HD, pending PT eval Discussed plan of care at bedside with patient's RN. Objective - Exam Narrative Exam: GENERAL: Malnourished -Fijian male lying on bed appeared to be in no discomfort. HEENT: Normocephalic. Atraumatic. No conjunctival congestion or icterus. Patient has moist mucous membranes. NECK: Supple. Trachea midline. CHEST/LUNGS: Clear to auscultated bilaterally, breathing nonlabored. No wheezes crackles or rhonchi. HEART/CARDIOVASCULAR: Regular in rate and rhythm. S1 and S2 positive. ABDOMEN: Abdomen is soft, nontender. Patient has normal bowel sounds. SKIN: There is no rash. Warm and dry. NEURO: No focal motor deficit. Follows command. MUSCULOSKELETAL: No joint effusion or tenderness. EXTRIMITY: No edema, no cyanosis or clubbing. PSYCH: Unable to assess, hardly speaking. - Constitutional Vitals: Vital Signs - 12hr 03/16/22 03/16/22 03/16/22 05:25 09:09 10:25 Temperature 98.3 F 97.8 F Pulse Rate 104 H 108 H Respiratory 18 18 Rate Blood Pressure 151/63 159/76 O2 Sat by Pulse 100 95 Oximetry O2 Sat by Pulse 100 Oximetry [ Anterior Bilateral] 03/16/22 03/16/22 03/16/22 11:00 11:15 11:30 Temperature Pulse Rate 104 H 104 H 107 H Respiratory Rate Blood Pressure 153/11 147/74 154/69 O2 Sat by Pulse Oximetry O2 Sat by Pulse Oximetry [ Anterior Bilateral] 03/16/22 03/16/22 03/16/22 11:45 12:00 12:15 Temperature Pulse Rate 108 H 106 H 109 H Respiratory Rate Blood Pressure 152/66 145/65 149/71 O2 Sat by Pulse Oximetry O2 Sat by Pulse Oximetry [ Anterior Bilateral] 03/16/22 03/16/22 03/16/22 12:30 12:45 13:00 Temperature Pulse Rate 110 H 106 H 113 H Respiratory Rate Blood Pressure 159/69 148/69 131/67 O2 Sat by Pulse Oximetry O2 Sat by Pulse Oximetry [ Anterior Bilateral] 03/16/22 03/16/22 03/16/22 13:15 13:30 13:45 Temperature Pulse Rate 111 H 110 H 112 H Respiratory Rate Blood Pressure 139/71 145/91 133/74 O2 Sat by Pulse Oximetry O2 Sat by Pulse Oximetry [ Anterior Bilateral] - Labs CBC & Chem 7: 03/16/22 07:14 03/16/22 04:00 Labs: Abnormal lab results 03/15/22 03/16/22 03/16/22 Range/Units 23:06 04:00 07:14 Hgb 8.0 L (11.8-15.2) gm/dl Hct 24.5 L (35.5-45.6) % Carbon Dioxide 20 L D (22-30) mmol/L Glucose 318 H (75-100) mg/dL Calcium 7.5 L (8.4-10.2) mg/dL Hepatitis C Antibody Reactive A (NonReactive) HEART Score - HEART Score Troponin: Troponin T 0.414 ng/mL (0.00-0.029) H* 03/13/22 13:50
[2022-03-17] MEDS: INSULIN LISPRO 100 UNIT/ML SUB-Q SCH ×3 (09:21→18:45)
[2022-03-17] MEDS: FOLIC ACID 1 MG TAB PO SCH (09:22)
[2022-03-17] MEDS: PANTOPRAZOLE 40 MG TAB PO SCH (09:22)
[2022-03-17] MEDS: TAMSULOSIN 0.4 MG CAP PO SCH (09:22)
--- NOTE | 2022-03-17 14:29 | Progress Note ---
Assessment and Plan 1. ESRD: Patient is on maintenance hemodialysis, MWF schedule. Hemodialysis: 03/16. 2. FEN: Hypokalemia, replete K as needed. Monitor lytes and volume status. 3. Severe Anemia: PRBC. Epogen. Trend. 4. Acute metabolic encephalopathy: ?baseline MS. Monitor. 5. Elevated ALT & AST: Monitor. 6. Hypertension: Adjust meds as needed. Volume control. Monitor BP. 7. H/o DM. Subjective: Patient was seen and examined at the bedside. Examination: General appearance: well-developed, appears stated age, emaciated, not in distress HEENT: no icterus Neck: trachea midline Respiratory: ctab Heart: S1S2, regular, ESM+ Abdomen: soft, bowel sounds heard, NT, no palpable mass Integumentary: no obvious rash noted Neurologic: slowed mentation, confused, on restrains Ext: no edema Hemodialysis access: R IJ tunnel catheter Subjective Date of service: 03/17/22 Objective - Vital Signs Vital signs: Vital Signs - 12hr 03/17/22 03/17/22 05:33 11:00 Temperature 98.1 F Pulse Rate 104 H Respiratory 18 Rate Blood Pressure 141/67 O2 Sat by Pulse 95 97 Oximetry - Lab 03/16/22 07:14 03/16/22 04:00 Most recent lab results Calcium 7.5 mg/dL (8.4-10.2) L 03/16/22 04:00 Magnesium 1.90 mg/dL (1.7-2.3) 03/13/22 18:10 Medications & Allergies - Medications Allergies/Adverse Reactions: Allergies No Known Allergies Allergy (Unverified 03/14/22 08:19) Home Medications: Home Medications Medication Instructions Recorded Confirmed Last Taken Type Folic Acid [Folvite] 1 mg PO DAILY 03/14/22 03/14/22 Unknown History Furosemide [Lasix] 40 mg PO 03/14/22 Unknown History Sevelamer Carbonate [Renvela] 800 PO DAILY 03/14/22 Unknown History Tamsulosin [Flomax] 0.4 mg PO QDAY 03/14/22 03/14/22 Unknown History amLODIPine [Norvasc] 10 mg PO DAILY 03/14/22 03/14/22 Unknown History Ammonium Lactate [Skin Treatment] 400 1000units 03/15/22 Unknown History Aspirin EC [Halfprin EC] 81 mg PO DAILY 03/15/22 03/15/22 Unknown History Atorvastatin [Lipitor Tab] 80 mg PO DAILY 03/15/22 03/15/22 Unknown History DULoxetine [Cymbalta] 30 cap PO DAILY 03/15/22 03/15/22 Unknown History Esomeprazole Magnesium [NexIUM] 40 mg PO 12XD 03/15/22 03/15/22 Unknown History Folic Acid 1 tab PO DAILY 03/15/22 03/15/22 Unknown History Gabapentin 200 PO DAILY 03/15/22 Unknown History Metoprolol [Lopressor] 25 mg PO DAILY 03/15/22 03/15/22 Unknown History Active Medications: Generic Name Dose Route Start Last Admin Trade Name Freq PRN Reason Stop Dose Admin Acetaminophen 650 mg 03/13/22 18:34 Acetaminophen 325 Mg Tab PO Q4H PRN Pain MILD(1-3)/Fever >100.5/CASTILLO Albuterol 2.5 mg 03/13/22 18:34 Albuterol 2.5 Mg/3 Ml Nebu IH Q4HRT PRN Shortness Of Breath Epoetin Tucker-epbx 20,000 unit 03/16/22 13:00 Epoetin Tucker-Epbx 10,000 Unit/1 Ml Vial IV KASHMIR PRN hemodialysis Folic Acid 1 mg 03/16/22 10:00 03/17/22 09:22 Folic Acid 1 Mg Tab PO 1 mg DAILY STACIE Administration Sodium Chloride 100 mls @ 999 mls/hr 03/15/22 20:00 Nacl 0.9% IV KASHMIR PRN Hypotension Insulin Human Lispro 0 unit 03/15/22 07:30 03/17/22 13:08 Insulin Lispro 100 Unit/Ml SUB-Q Not Given ACHS [facility] Protocol Morphine Sulfate 2 mg 03/13/22 18:34 Morphine 2 Mg/1 Ml Inj IV Q14H PRN Pain , Severe (7-10) Ondansetron HCl 4 mg 03/13/22 18:34 Ondansetron 4 Mg/2 Ml Inj IV Q8H PRN Nausea And Vomiting Oxycodone/Acetaminophen 1 tab 03/13/22 18:34 Oxycodone /Acetaminophen 5-325mg Tab PO Q6H PRN Pain, Moderate (4-6) Pantoprazole Sodium 40 mg 03/15/22 11:00 03/17/22 09:22 Pantoprazole 40 Mg Tab PO 40 mg QDAC STACIE Administration Sodium Chloride 10 ml 03/13/22 22:00 03/17/22 09:22 Sodium Chloride 0.9% 10 Ml Flush Syringe IV 10 ml BID STACIE Administration Sodium Chloride 10 ml 03/13/22 18:34 Sodium Chloride 0.9% 10 Ml Flush Syringe IV PRN PRN LINE FLUSH Tamsulosin HCl 0.4 mg 03/15/22 11:00 03/17/22 09:22 Tamsulosin 0.4 Mg Cap PO 0.4 mg QDAY STACIE Administration
--- NOTE | 2022-03-17 14:54 | Discharge Summary ---
Providers - Providers Date of Admission: 03/13/22 18:34 Attending physician: JOHANA MIGUEL 03/13/22 18:55 Consult to Physician [CONS] Routine Comment: Consulting Provider: SHIREEN SCHULZ Physician Instructions: Reason For Exam: esrd 03/14/22 11:43 Physical Therapy Evaluation and Treat [CONS] Routine Comment: Reason For Exam: Debility 03/15/22 09:35 Consult to Physician [CONS] Routine Comment: Consulting Provider: GARRET CAMPBELL Physician Instructions: Reason For Exam: possible GI bleed Primary care physician: MANUEL WALLACE Hospitalization Condition: Stable Disposition: 30 STILL A PATIENT - Discharge Diagnoses (1) Dialysis disequilibrium syndrome Status: Acute (2) Symptomatic anemia Status: Acute (3) End stage renal disease Status: Acute (4) DVT prophylaxis Status: Acute (5) Advance care planning Status: Acute (6) Preventative health care Status: Acute Exam - Constitutional Vitals: Temp Pulse Resp BP Pulse Ox 98.1 F 104 H 18 141/67 97 03/17/22 05:33 03/17/22 05:33 03/17/22 05:33 03/17/22 05:33 03/17/22 11:00 Plan Follow up with: MANUEL WALLACE MD [Primary Care Provider] - 7 Days
[2022-03-17 16:08] VITALS: BP 146/69
--- NOTE | 2022-03-17 16:57 | Gastroenterology Progress Note ---
Assessment and Plan 1. GI: pt stable w/o GI complaints overnight - follow labs - diet as tolerated - no plans to scope at this time - ok to dc from GI standpoint - will sign off, call if needed Subjective Date of service: 03/17/22 Interval history: - no GI complaints overnight Objective - Constitutional Vitals: Temp Pulse Resp BP Pulse Ox 97.3 F L 112 H 16 146/69 97 03/17/22 16:10 03/17/22 16:10 03/17/22 16:10 03/17/22 16:10 03/17/22 16:10 General appearance: no acute distress - EENT Eyes: PERRL - Respiratory Respiratory: bilateral: CTA - Cardiovascular Rhythm: regular Heart Sounds: Present: S1 & S2 - Gastrointestinal General gastrointestinal: Present: soft, non-tender, non-distended - Labs CBC & Chem 7: 03/16/22 07:14 03/16/22 04:00 Labs: Laboratory Results - last 24 hr 03/15/22 03/15/22 03/15/22 11:56 16:37 21:47 POC Glucose 114 H 133 H 97 03/16/22 03/16/22 03/17/22 17:18 22:13 07:23 POC Glucose 109 H 134 H 102 03/17/22 03/17/22 11:55 16:05 POC Glucose 136 H 162 H
--- NOTE | 2022-03-18 13:52 | Electrocardiograph Report ---
[facility] Test Date: 2022-03-13 Test Time: 12:51:15 Pat Name: DARION CASTELAN Department: Room: A376 Gender: M Planning Engineer: GERRY : 1955 Requested By: PILY DEUTSCH Order Number: [id number] Reading MD: Aga Dsouza Measurements Intervals [place] Rate: 90 P: 56 WI: 175 QRS: 66 QRSD: 96 T: 243 QT: 393 QTc: 482 Interpretive Statements Sinus rhythm Nonspecific T abnormalities, diffuse leads Nonspecific intraventricular conduction delay No previous ECG available for comparison Electronically Signed On 03-18-2022 13:52:09 EDT by Aga Dsouza
== END 2022-03-17 18:46 | disposition home health service (06) | DRG 640 ==
LOC: ED 12:12 → 3A 18:34
PROVIDERS: ADMIT Internal Medicine; ATTEND Internal Medicine
PROC: 30233N1 Transfusion of Nonautologous Red Blood Cells into Peripheral Vein, Percutaneous Approach (ICD-10-PCS; principal; 2022-03-13)
PROC: 5A1D70Z Performance of Urinary Filtration, Intermittent, Less than 6 Hours Per Day (ICD-10-PCS; 2022-03-16)
DX: E87.8 Other disorders of electrolyte and fluid balance, not elsewhere classified (principal); G93.41 Metabolic encephalopathy; N18.6 End stage renal disease; I12.0 Hypertensive chronic kidney disease with stage 5 chronic kidney disease or end stage renal disease; E44.0 Moderate protein-calorie malnutrition; Z68.1 Body mass index [BMI] 19.9 or less, adult; D64.9 Anemia, unspecified; E87.6 Hypokalemia; E11.22 Type 2 diabetes mellitus with diabetic chronic kidney disease; Z99.2 Dependence on renal dialysis; B19.20 Unspecified viral hepatitis C without hepatic coma; D69.6 Thrombocytopenia, unspecified; E83.51 Hypocalcemia; R00.0 Tachycardia, unspecified; Z83.3 Family history of diabetes mellitus; Z82.49 Family history of ischemic heart disease and other diseases of the circulatory system
CPT/HCPCS: 36415; 70450; 80048; 80053; 80074; 82140; 82550; 82962; 83735; 84484; 85007; 85014; 85018; 85025; 86850; 86900; 86901; 86920; 93005; 94760; 96374; 99285; G0378; J0610; J0885; J7030; J7040; P9016